=== PATIENT | female | born 1970 | race Caucasian/White ===

== ENCOUNTER 2018-04-02 07:00 | Day surgery (SDC) | payer BC ==
[2018-04-02] MEDS ORDERED: Ringers Lactate 1,000 ML IV ONE (07:30)
[2018-04-02] MEDS ORDERED: CEFAZOLIN 1GM (PREMIX IV) 1 GM/50 ML BAG ONE (07:30)
[2018-04-02] MEDS ORDERED: BUPIVACA 0.25%/EPI 0.0005% MDV 50 ML VIAL ONE (07:32)
[2018-04-02] MEDS ORDERED: FENTANYL CITR 100 MCG/2 ML ONE (07:35)
[2018-04-02] MEDS ORDERED: MIDAZOLAM HCL 2 MG/2 ML INJ ONE (07:35)
[2018-04-02] MEDS ORDERED: PROPOFOL 200 MG/20 ML VIAL IV ONE (07:35)
[2018-04-02] MEDS ORDERED: LIDOCAINE 1% MPF 5 ML VIAL ONE (07:35)
[2018-04-02] MEDS ORDERED: KETOROLAC 30 MG/ML INJ ONE (09:04)
[2018-04-02] MEDS ORDERED: ONDANSETRON 4 MG/2 ML VIAL ONE (09:44)
--- NOTE | 2018-04-02 09:55 | P.OP ---
Preoperative diagnosis: Bilateral Arm Cysts Postoperative diagnosis: Bilateral Arm Cysts Primary procedure: Excision of 4 arm cysts Anesthesia: GETA + Local Estimated blood loss: <5cc Specimen: cultures, cyst material Findings: 4 cysts , right shoulder, right upper arm, left posterior arm, left lat arm Complications: None Transferred to: Recovery Room Condition: Good
--- NOTE | 2018-04-02 11:40 | OP ---
Date of Procedure: 04/02/2018 Surgeon: Yeison Moore MD, Preoperative Diagnosis: Bilateral arm cysts x4. Postoperative Diagnosis: Bilateral arm cysts x4. Procedure Performed: Excision of the 4 above-stated bilateral arm cysts. Anesthesia: General endotracheal plus local with 0.25% Marcaine. Estimated Blood Loss: Less than 5 cc. Specimen: Cultures and cyst material. Findings: Four cysts were noted. They were approximately 4 cm x 3 cm on the right shoulder, right u pper arm was approximately 2 cm x 3 cm, left posterior arm was approximately 3 cm x 4 cm, and left la teral arm was approximately 2 cm x 2 cm. Complications: None. Disposition: Transferred to recovery room in good condition. Procedure In Detail: After informed consent was obtained, the patient was brought to the operating r oom, prepped and draped in the usual sterile fashion. After adequate anesthesia was achieved, the ar ea of the right shoulder was first incised. After appropriately incising down through the subcutaneo us tissues, immediately encountered was purulent pus-type fluid. This was cultured and sent off for aerobic and anaerobic speciation. The cyst was opened in its entirety and the capsule removed. The area was copiously irrigated. Hemostasis was achieved with electrocautery. Two single interrupted n ylon sutures were placed and the wound was packed with quarter-inch iodoform packing, and a sterile d ressing was placed over top. Next, attention was turned to the right upper arm cyst. This was simil ar anesthetized, sharply incised, and immediately encountered was additional purulent fluid of a fito lar type and some sebaceous material. The sebaceous material was sent off for pathologic examination . The cyst cavity was completely removed with curette and sharp dissection. Electrocautery was used to achieve hemostasis. The area was copiously irrigated and the wound was once again packed with qu arter-inch iodoform packing and 2 single interrupted sutures of 2-0 nylon were used to reapproximate the edges. Attention was turned to the left posterior arm cyst. This was similarly anesthetized, sh arply incised, and immediately encountered once again was purulent fluid. The cyst cavity was opened in its entirety, completely cored out including capsule. It was found to be consistent with infecte d sebaceous material. Hemostasis was achieved with electrocautery after the capsule was completely r emoved, and the area was copiously irrigated and packed with half-inch iodoform packing and 2 additio nal sterile dressings were placed over top. The right upper arm laterally was then addressed in a si milar fashion. It was anesthetized, sharply incised, and once again purulent fluid was encountered a long with sebaceous-type material. All sebaceous capsule and material was removed. The capsule was cored out in its entirety, down to good subcutaneous fat, and the capsule was sent off for pathologic examination. The wound was then bovied with electrocautery for hemostasis. The area was copiously irrigated and packed with quarter-inch iodoform packing. Sterile dressing was placed over top. The patient tolerated the procedure well without evidence of complications, transferred to PACU in good c ondition. All counts were correct at the end of the case. BARNEY/MACO Voice ID: [id number] Report ID: [id number]
== END 2018-04-02 11:32 | disposition home or self-care (01) ==
LOC: OR 07:00
PROVIDERS: ATTEND Surgery
PROC: 0HBBXZZ Excision of Right Upper Arm Skin, External Approach (ICD-10-PCS; 2018-04-02)
PROC: 0HBCXZZ Excision of Left Upper Arm Skin, External Approach (ICD-10-PCS; 2018-04-02)
PROC: 0HBBXZZ Excision of Right Upper Arm Skin, External Approach (ICD-10-PCS; 2018-04-02)
PROC: 0HBEXZZ Excision of Left Lower Arm Skin, External Approach (ICD-10-PCS; principal; 2018-04-02 08:30)
DX: L72.0 Epidermal cyst (principal); L90.5 Scar conditions and fibrosis of skin
CPT/HCPCS: 81025; 87070; 87075; 87205; 88305; 88312; J0690; J2250; J2405; J2704; J3010